=== PATIENT | female | born 1980 | race Caucasian/White ===

== ENCOUNTER 2017-08-27 18:33 | Emergency (ER) | payer OTHER ==
[~2017-08-27] VITALS: Ht 160 cm; Wt 68.0 kg
[2017-08-27] MEDS ORDERED: EUTIROX (19:42)
[2017-08-28] MEDS ORDERED: ZOFRAN4 MG PO (03:10)
[2017-08-28] MEDS ORDERED: ZANTAC300 MG PO (03:10)
[2017-08-28] MEDS ORDERED: LEVSIN/SL0.125 MG SL (03:10)
[2017-08-28] MEDS ORDERED: INTESTINEX680 M1 PO (03:10)
[2017-08-28] MEDS ORDERED: BENADRYL25 MG PO ×2 (03:11→03:12)
[2017-08-28] MEDS ORDERED: BETAMETHASONE D15 G2 TOP ×2 (03:12)
== END 2017-08-28 03:24 | disposition home or self-care (01) ==
LOC: ER 18:33
DX: K52.89 Other specified noninfective gastroenteritis and colitis (principal)